=== PATIENT | male | born 1975 | race Caucasian/White ===

== ENCOUNTER 2020-02-09 01:58 | Emergency (ER) | payer MEDICAID ==
--- NOTE | 2020-02-09 03:01 | EDM.PDOC ---
ED HPI GENERAL MEDICAL PROBLEM - General Chief Complaint: Lower Extremity Injury/Pain Stated Complaint: INJURED LEFT FOOT Time Seen by Provider: 02/09/20 02:49 Source of Information: Reports: Patient Departure - Discharge Information Referrals: PCP,None [Primary Care Provider] -
== END 2020-02-09 03:38 | disposition left against medical advice (07) ==
LOC: JP.ED 01:58
DX: Z53.21 Procedure and treatment not carried out due to patient leaving prior to being seen by health care provider (principal)